=== PATIENT | male | born 1940 | race Caucasian/White ===

== ENCOUNTER → 2017-02-10 | Outpatient (CLI) | payer MEDICARE, OTHER ==
[~2017-02-10] MED LIST: ALLO300T2 PO; ASPI81TA2 PO; CARV25TA2 PO; FURO40TA5 PO; ISOS30TA6 PO; LISI2.5T2 PO; METF10002 PO; POTA10CA37 PO; SIMV20TA6 PO
--- NOTE | 2017-02-14 15:12 | NUR ---
O/P MNT r/t DM2 To: Dr Stafford From: Kamini Vides RD, CDE Date: February 11, 2017 Patient: Armando Nation : 1940 Assessment: Armando came to appointment for MNT r/t DM2, accompanied by his , Kamini. DM x 15 y. Chirag recently finished DSMT and has regular exercise and SMBG schedule. His main concern is that he is struggling to reduce portion sizes, and feels hungry most of the time. His 24-hour recall indicated that he is eating 4-6 carb servings at a meal, and sometimes 3-4 carb servings for a snack, with frequent fast food meals. His 24 hr recall indicated very low fiber intake, with no fruits or vegetables eaten the previous day. however, he states that he likes to eat salad and most vegetables and fruits. He was previous on a new DM medication?, that made him feel full quickly after a meal, but had to stop med because he hit the donut hole. He does not recognize carb foods, serving sizes, nor does he know how to count carbs. Because of his size, Chirag needs more food (and more carb servings) than his does, who is much shorter than Chirag. States his goal is to lose weight and get off of DM meds. His and his two daughters provide support in his life. Activity: Resistance, 3-4 x weekly, in [employer] exercise room; walks outside 4-6 times weekly, mile each walk. Sleep: usually 6-7 hours; usually has interrupted sleep. Ht: 65 wt: 295 lbs BMI: 35.0 DM meds: Metformin 1000 mg BID; Glimepiride 4 mg (after supper?) A1c: 8.0 SMB time daily: FBS: 100% at ADA goal; does not check after meals because he does not want to know Nutrition Diagnosis: Food and nutrition knowledge deficit r/t DM 2 aeb by A1c, recent food intake & patient report. Intervention: 1) Priority modification: a)Begin carb counting; aim for 5-6 carb servings at every meal i)Reviewed carb foods, carb serving sizes, using My Food Plan ([facility]) ii)Practiced carb counting on recent meals, and planning meals to included 5-6 carb servings. Chirag was encouraged to begin fruit and dairy (yogurt, pudding) at meals so that he would eat 5-6 carb servings at a meal. iii)meal timing: meals should be 4-6 hours apart. if longer than 6 hr, then eat a snack between meals. b)Begin SMBG 2 hr after meals, especially big meals, to evaluation pp hyperglycemia. 2)Recommended modifications: a)Snacks: 20-30 g CHO; snacks can be eaten 2 hrs after a meal is BG has started to come back down. b)avoid juice; eat whole fruit, canned or frozen fruit. 3)M/E: f/u appointment in 1 month. Thank you for your referral.
== END | disposition home or self-care (01) ==
LOC: MNT 15:04
PROVIDERS: ATTEND Family Medicine
DX: E11.65 Type 2 diabetes mellitus with hyperglycemia (principal)